=== PATIENT | female | born 1995 | race Caucasian/White ===

== ENCOUNTER 2018-04-09 20:54 | Emergency (ER) | payer SELFPAY ==
[~2018-04-09] VITALS: Ht 157.5 cm; Wt 93.0 kg
[~2018-04-09 20:54] MED LIST: DEP150I IM
[2018-04-09 21:07] VITALS: BP 126/85
--- NOTE | 2018-04-09 21:10 | NUR ---
TO LOBBY A/W BED. [facility] VSOumou, GORDON NOTED
--- NOTE | 2018-04-09 21:44 | NUR ---
PT TAKEN TO BED 12
--- NOTE | 2018-04-09 21:48 | NUR ---
PATIENT PRESENTS TO ED WITH C/O TINGLING TO LEFT ARM X 3 DAYS AND C/O DIZZINESS OFF AND ON X 1 WEEK. PT DENIES PAIN AT THIS TIME. NO MED HX PT DENIES N/V/D; SKIN IS PINK/WARM/DRY; AAOX4 WITH EVEN AND STEADY GAIT; LUNGS CLEAR BL; HR EVEN AND REGULAR; PT DENIES ANY FEVER, CP, SOB, OR COUGH AT THIS TIME; PATIENT STATES PAIN OF 0/10 AT THIS TIME; VSS; PATIENT POSITIONED FOR COMFORT; HOB ELEVATED; BEDRAILS UP X2; BED DOWN. ER MD MADE AWARE OF PT STATUS.
[2018-04-09 22:45] VITALS: BP 134/74
--- NOTE | 2018-04-09 22:45 | NUR ---
Patient discharged with v/s stable. Written and verbal after care instructions given and explained. Patient verbalized understanding. Ambulatory with steady gait. All questions addressed prior to discharge. Advised to follow up with PMD.
== END 2018-04-09 22:45 | disposition home or self-care (01) ==
LOC: MED 20:54
DX: M54.12 Radiculopathy, cervical region (principal); R03.0 Elevated blood-pressure reading, without diagnosis of hypertension; Z79.899 Other long term (current) drug therapy
CPT/HCPCS: 99283

== ENCOUNTER 2019-07-15 15:35 | Emergency (ER) | payer MEDICAID ==
[~2019-07-15] VITALS: Ht 157.5 cm; Wt 86.2 kg
[2019-07-15 15:40] VITALS: BP 116/61
[2019-07-15] MEDS ORDERED: KETOROLAC 30 MG/ML VIAL IM ONE (16:30)
[2019-07-15 17:41] VITALS: BP 116/61
== END 2019-07-15 17:42 | disposition home or self-care (01) ==
LOC: MED 15:35
DX: S90.32XA Contusion of left foot, initial encounter (principal); Z79.899 Other long term (current) drug therapy; V03.90XA Pedestrian on foot injured in collision with car, pick-up truck or van, unspecified whether traffic or nontraffic accident, initial encounter; Y93.89 Activity, other specified; Y92.89 Other specified places as the place of occurrence of the external cause; Y99.8 Other external cause status
CPT/HCPCS: 73630; 96372; 99283; J1885; Q0092

== ENCOUNTER 2019-07-30 09:35 | Emergency (ER) | payer MEDICAID ==
[~2019-07-30] VITALS: Ht 157.5 cm; Wt 83.0 kg
[2019-07-30 09:44] VITALS: BP 113/72
--- NOTE | 2019-07-30 09:46 | NUR ---
PT AMB TO BED 11 WITH STEADY GAIT
--- NOTE | 2019-07-30 09:49 | NUR ---
C/O UPPER AB PAIN WITH N/V/D X 3 DAYS. PAIN 6/10 HX- GASTRITIS RX- DENIES . SKIN IS PINK/WARM/DRY; AAOX4 WITH EVEN AND STEADY GAIT; LUNGS CLEAR BL; HR EVEN AND REGULAR; PT DENIES ANY FEVER, CP, SOB, OR COUGH AT THIS TIME; PATIENT STATES PAIN OF 6/10 AT THIS TIME; VSS; PATIENT POSITIONED FOR COMFORT; HOB ELEVATED; BEDRAILS UP X2; BED DOWN. ER MD MADE AWARE OF PT STATUS.
[2019-07-30] MEDS ORDERED: DIPHENOXYLATE /ATROPINE 2.5 MG TAB PO ONE (10:00)
[2019-07-30] MEDS ORDERED: ONDANSETRON 4 MG ODT PO ONE (10:00)
[2019-07-30] MEDS ORDERED: FAMOTIDINE 20 MG TAB PO ONE (10:00)
[2019-07-30 10:24] VITALS: BP 123/76
--- NOTE | 2019-07-30 10:24 | NUR ---
Patient discharged with v/s stable. Written and verbal after care instructions given and explained. Patient alert, oriented and verbalized understanding of instructions. Ambulatory with steady gait. All questions addressed prior to discharge. ID band removed. Patient advised to follow up with PMD. Rx of ZOFRAN/LOMOTIL/PEPCID given. Patient educated on indication of medication including possible reaction and side effects. Opportunity to ask questions provided and answered.
== END 2019-07-30 10:24 | disposition home or self-care (01) ==
LOC: MED 09:35
DX: K29.70 Gastritis, unspecified, without bleeding (principal); R19.7 Diarrhea, unspecified; Z79.899 Other long term (current) drug therapy
CPT/HCPCS: 81002; 81025; 99284; Q0162